=== PATIENT | female | born 1965 | race Caucasian/White ===

== ENCOUNTER → 2023-05-21 | Day surgery (SDC) | payer OTHER ==
[~2023-05-21] MED LIST: BROMELAINS500 MG PO; CRESTOR10 MG PO; FIBER PO; FLONASE ALLERG9.9 ML INH; IRON PO; LACTATED RINGER'S 1,000 ML ONE; LEVOTHYROXINE75 MCG PO; MAGNESIUM PO; MONTELUKAST SOD10 MG PO; PROPOFOL IV EMULSION 50 ML IV ONE; SELINIUM PO; VITAMIN D310 MCG PEG; ZYRTEC10 M3 PO
[2023-05-21 10:30] VITALS: BP 135/86; PULSE 82; RESP 16; O2SAT 98
== END | disposition home or self-care (01) ==
LOC: OR 07:26
PROVIDERS: ATTEND Internal Medicine Gastroenterology
DX: Z12.11 Encounter for screening for malignant neoplasm of colon (principal); D12.2 Benign neoplasm of ascending colon; K64.8 Other hemorrhoids; R14.0 Abdominal distension (gaseous); E03.9 Hypothyroidism, unspecified; J30.2 Other seasonal allergic rhinitis; E78.00 Pure hypercholesterolemia, unspecified; Z88.1 Allergy status to other antibiotic agents; Z01.810 Encounter for preprocedural cardiovascular examination; Z79.899 Other long term (current) drug therapy; Z80.0 Family history of malignant neoplasm of digestive organs
CPT/HCPCS: 45378; 45380; 45385; 88305; 93005